=== PATIENT | male | born 1945 | race Caucasian/White ===

== ENCOUNTER 2016-08-27 21:09 | Inpatient (IN) | payer MEDICARE ==
[~2016-08-27 21:09] MED LIST: METFORMIN HCL500 MG PO; PREDNISONE 10MG10 MG PO; SINGULAIR10 MG PO; SPIRIVA18 MCG INH; VENTOLIN (2.5 MG/3 M INH; VENTOLIN HFA IN18 GM INH; VIBRAMYCIN100 M1 PO; ZOCOR20 MG PO
[2016-08-27 22:16] LABS: ALBUMIN 3.5 g/dL (3.4-4.8); BILIRUBIN - TOTAL 0.2 mg/dL (0.1-1.0); CREATININE 0.8 mg/dL (0.7-1.2); GLOBULIN (CALCULATION) 2.8 g/dL (2.2-4.2); TOTAL PROTEIN 6.3 g/dL (6.4-8.3)
[2016-08-27 22:17] LABS: TROPONIN T 0.032 ng/mL
[2016-08-27 22:27] LABS: BASOPHIL 0.3 % (0-2); EOSINOPHIL 1.7 % (0-7); HCT 40.5 % (42.0-52.0); HGB 12.4 g/dl (13.2-18.0); LYMPHOCYTE 9.4 % (15-48); MCH 26.8 pg (25.0-31.0); MCHC 30.6 g/dL (32.0-36.0); MCV 87.5 fL (78.0-100.0); MONOCYTE 6.2 % (0-12); MPV 7.9 fL (6.0-9.5); NEUTROPHIL 82.4 % (41-80); PLT 499 K/uL (150-400); RBC 4.63 M/uL (4.70-6.00); RDW 14.3 % (11.5-14.0); WBC 12.7 K/uL (4.0-10.5)
[2016-08-28 05:46] LABS: BASOPHIL 0.1 % (0-2); EOSINOPHIL 0 % (0-7); HCT 38.5 % (42.0-52.0); HGB 11.8 g/dl (13.2-18.0); LYMPHOCYTE 2.5 % (15-48); MCH 26.6 pg (25.0-31.0); MCHC 30.6 g/dL (32.0-36.0); MCV 86.7 fL (78.0-100.0); MONOCYTE 1.1 % (0-12); MPV 7.7 fL (6.0-9.5); NEUTROPHIL 96.3 % (41-80); PLT 464 K/uL (150-400); RBC 4.44 M/uL (4.70-6.00); RDW 14.2 % (11.5-14.0)
[2016-08-28 05:48] LABS: WBC 9.3 K/uL (4.0-10.5)
[2016-08-28 06:13] LABS: CREATININE 0.7 mg/dL (0.7-1.2); POTASSIUM 4.3 mmol/L (3.5-5.1)
[2016-08-28 06:17] LABS: CKMB 3.94 ng/mL (0.97-4.94); MYOGLOBIN 66 ng/mL (26-65); TROPONIN T < 0.010 ng/mL
[2016-08-28 06:58] LABS: PRO-BNP 540 pg/mL (0-125)
[2016-08-28 12:37] LABS: CKMB 4.36 ng/mL (0.97-4.94); MYOGLOBIN 51 ng/mL (26-65); TROPONIN T < 0.010 ng/mL
[2016-08-28 12:39] LABS: PRO-BNP 550 pg/mL (0-125)
[2016-08-29 04:53] LABS: BASOPHIL 0.1 % (0-2); EOSINOPHIL 0 % (0-7); HCT 37.8 % (42.0-52.0); HGB 11.7 g/dl (13.2-18.0); LYMPHOCYTE 3.2 % (15-48); MCH 26.8 pg (25.0-31.0); MCV 86.7 fL (78.0-100.0); MONOCYTE 2.5 % (0-12); MPV 7.9 fL (6.0-9.5); NEUTROPHIL 94.2 % (41-80); PLT 577 K/uL (150-400); RBC 4.36 M/uL (4.70-6.00); RDW 14.3 % (11.5-14.0); WBC 17.8 K/uL (4.0-10.5)
[2016-08-29 05:13] LABS: CREATININE 0.7 mg/dL (0.7-1.2); POTASSIUM 4.5 mmol/L (3.5-5.1)
--- NOTE | 2016-08-29 07:50 | NUR ---
PATIENT IN BED HARD TO AROUSE, LETHARGIC, AROUSES TO PAINFUL STIMULI, O2 SAT ON 3L O2 94-95%, PATEITN A&0X3 SLOW TO ANSWER QUESTIONS. DR GARCIA CONTACTED AND STAT ABG ORDERED.
--- NOTE | 2016-08-29 08:10 | NUR ---
RESULTS OF ABG TO DR. GARCIA, 02 DECREASED TO 1L NC AND ORDERED TO REPEAT ABG IN 2 HRS, CONTINUE TO MONITOR PATIENT.
--- NOTE | 2016-08-29 09:45 | NUR ---
PATIENT 02 SAT DECREASED TO 83% ON 1L O2;PATIENT CONTINUE TO BE LETHARGIC BUT AROUSES TO PAINFUL STIMULI; MD AWARE AND PATIENT ORDERED TO PLACE ON BIPAP AND TRANSFER TO [facility]
[2016-08-30 06:48] LABS: BASOPHIL 0 % (0-2); EOSINOPHIL 0 % (0-7); HCT 36.4 % (42.0-52.0); HGB 11.3 g/dl (13.2-18.0); LYMPHOCYTE 2.6 % (15-48); MCH 26.4 pg (25.0-31.0); MONOCYTE 1.2 % (0-12); MPV 8.1 fL (6.0-9.5); NEUTROPHIL 96.2 % (41-80); PLT 510 K/uL (150-400); RBC 4.28 M/uL (4.70-6.00); WBC 15.5 K/uL (4.0-10.5)
[2016-08-30 07:10] LABS: ALBUMIN 3.4 g/dL (3.4-4.8); BILIRUBIN - TOTAL 0.2 mg/dL (0.1-1.0); CREATININE 0.7 mg/dL (0.7-1.2); GLOBULIN (CALCULATION) 2.3 g/dL (2.2-4.2); POTASSIUM 4.6 mmol/L (3.5-5.1); TOTAL PROTEIN 5.7 g/dL (6.4-8.3)
[2016-08-31 04:21] LABS: BASOPHIL 0.1 % (0-2); EOSINOPHIL 0 % (0-7); HCT 38.3 % (42.0-52.0); HGB 11.9 g/dl (13.2-18.0); MCH 26.2 pg (25.0-31.0); MCHC 31.1 g/dL (32.0-36.0); MCV 84.2 fL (78.0-100.0); NEUTROPHIL 92.9 % (41-80); PLT 504 K/uL (150-400); RBC 4.55 M/uL (4.70-6.00); RDW 14.1 % (11.5-14.0)
[2016-08-31 04:25] LABS: WBC 11.9 K/uL (4.0-10.5)
[2016-09-01 03:36] LABS: HCT 37.6 % (42.0-52.0); HGB 11.7 g/dl (13.2-18.0); MCH 26.3 pg (25.0-31.0); MCHC 31.1 g/dL (32.0-36.0); MCV 84.5 fL (78.0-100.0); MPV 7.8 fL (6.0-9.5); RBC 4.45 M/uL (4.70-6.00); RDW 13.9 % (11.5-14.0); WBC 13.1 K/uL (4.0-10.5)
[2016-09-02 05:10] LABS: BASOPHIL 0.2 % (0-2); EOSINOPHIL 0 % (0-7); HCT 39.5 % (42.0-52.0); HGB 12.3 g/dl (13.2-18.0); LYMPHOCYTE 4.5 % (15-48); MCH 26.3 pg (25.0-31.0); MCHC 31.1 g/dL (32.0-36.0); MCV 84.4 fL (78.0-100.0); MONOCYTE 3.5 % (0-12); MPV 8.3 fL (6.0-9.5); NEUTROPHIL 91.8 % (41-80); PLT 455 K/uL (150-400); RBC 4.68 M/uL (4.70-6.00)
[2016-09-02 05:19] LABS: CREATININE 0.6 mg/dL (0.7-1.2)
[2016-09-02 05:20] LABS: WBC 13.2 K/uL (4.0-10.5)
[2016-09-02] MEDS ORDERED: DUONEB 2.5-0.5M1 AMP INH (13:44)
[2016-09-02] MEDS ORDERED: LASIX20 MG PO (13:44)
[2016-09-02] MEDS ORDERED: ZYVOX600 MG PO (14:17)
[2016-09-02] MEDS ORDERED: FLORASTOR250 MG PO (14:17)
[2017-03-16] MEDS ORDERED: VENTOLIN HFA IN18 GM INH (12:48)
[2017-03-16] MEDS ORDERED: DILTIAZEM 24HR360 M1 PO (12:48)
[2017-03-16] MEDS ORDERED: PROTONIX 40MG T40 MG PO (12:49)
[2017-03-16] MEDS ORDERED: SYMBICORT 16010.2 GM INH (12:49)
[2017-03-16] MEDS ORDERED: FEOSOL325 MG PO (12:49)
[2017-03-16] MEDS ORDERED: ZOCOR20 MG PO (12:51)
[2017-03-16] MEDS ORDERED: METFORMIN HCL500 MG PO (12:51)
[2017-03-16] MEDS ORDERED: SINGULAIR10 MG PO (12:51)
[2017-03-16] MEDS ORDERED: DUONEB 2.5-0.5M1 AMP INH (12:52)
[2017-03-16] MEDS ORDERED: IBUPROFEN800 MG PO (12:52)
[2017-03-16] MEDS ORDERED: COLACE100 MG PO (12:52)
[2017-03-16] MEDS ORDERED: THEO-24200 MG PO (12:52)
[2017-03-16] MEDS ORDERED: PERCOCET 5/3251 TAB PO (12:53)
[2017-03-16] MEDS ORDERED: LIDOCAINE 5% P1 EACH TOP (12:55)
[2017-03-16] MEDS ORDERED: ACETAMINOPHEN325 MG PO (12:56)
[2017-03-16] MEDS ORDERED: ASPIRIN CHEWABL81 MG PO (12:56)
[2017-03-16] MEDS ORDERED: MUCINEX600 MG PO (12:56)
== END 2016-09-02 16:05 | disposition home health service (06) | DRG 871 ==
LOC: FER 21:09 → FMS 08-28 00:20 → FTCU 08-29 09:13 → FMS 08-31 16:41
PROVIDERS: Emergency Medicine; Internal Medicine; ADMIT Internal Medicine Nephrology
DX: A41.9 Sepsis, unspecified organism (principal); J96.21 Acute and chronic respiratory failure with hypoxia; G93.41 Metabolic encephalopathy; J44.0 Chronic obstructive pulmonary disease with (acute) lower respiratory infection; J44.1 Chronic obstructive pulmonary disease with (acute) exacerbation; J20.9 Acute bronchitis, unspecified; R91.1 Solitary pulmonary nodule; I25.10 Atherosclerotic heart disease of native coronary artery without angina pectoris; E78.5 Hyperlipidemia, unspecified; M10.9 Gout, unspecified; R53.83 Other fatigue; G47.00 Insomnia, unspecified; E11.9 Type 2 diabetes mellitus without complications; B95.62 Methicillin resistant Staphylococcus aureus infection as the cause of diseases classified elsewhere; Z99.81 Dependence on supplemental oxygen; Z95.1 Presence of aortocoronary bypass graft; Z87.891 Personal history of nicotine dependence; Z82.3 Family history of stroke; Z22.322 Carrier or suspected carrier of Methicillin resistant Staphylococcus aureus
CPT/HCPCS: 36415; 36600; 71010; 80048; 80053; 82550; 82553; 82803; 82962; 83874; 83880; 84484; 85025; 86403; 87070; 87077; 87186; 87205; 93005; 94640; 94660; 94664; 94760; 94762; 97110; 97116; 97162; 97166; 97530; 97535; J0456; J1644; J2930

== ENCOUNTER 2016-10-24 11:24 | Inpatient (IN) | payer MEDICARE ==
[~2016-10-24 11:24] MED LIST changes: +DUONEB 2.5-0.5M1 AMP INH; +FLORASTOR250 MG PO; +LASIX20 MG PO; +ZYVOX600 MG PO
[2016-10-28 06:18] LABS: ALBUMIN 3.1 g/dL (3.4-4.8); BILIRUBIN - TOTAL 0.2 mg/dL (0.1-1.0); CREATININE 0.6 mg/dL (0.7-1.2); GLOBULIN (CALCULATION) 2.2 g/dL (2.2-4.2); POTASSIUM 4.9 mmol/L (3.5-5.1); TOTAL PROTEIN 5.3 g/dL (6.4-8.3)
[2017-03-16] MEDS ORDERED: VENTOLIN HFA IN18 GM INH (12:48)
[2017-03-16] MEDS ORDERED: DILTIAZEM 24HR360 M1 PO (12:48)
[2017-03-16] MEDS ORDERED: PROTONIX 40MG T40 MG PO (12:49)
[2017-03-16] MEDS ORDERED: FEOSOL325 MG PO (12:49)
[2017-03-16] MEDS ORDERED: SYMBICORT 16010.2 GM INH (12:49)
[2017-03-16] MEDS ORDERED: METFORMIN HCL500 MG PO (12:51)
[2017-03-16] MEDS ORDERED: SINGULAIR10 MG PO (12:51)
[2017-03-16] MEDS ORDERED: ZOCOR20 MG PO (12:51)
[2017-03-16] MEDS ORDERED: DUONEB 2.5-0.5M1 AMP INH (12:52)
[2017-03-16] MEDS ORDERED: IBUPROFEN800 MG PO (12:52)
[2017-03-16] MEDS ORDERED: COLACE100 MG PO (12:52)
[2017-03-16] MEDS ORDERED: THEO-24200 MG PO (12:52)
[2017-03-16] MEDS ORDERED: PERCOCET 5/3251 TAB PO (12:53)
[2017-03-16] MEDS ORDERED: LIDOCAINE 5% P1 EACH TOP (12:55)
[2017-03-16] MEDS ORDERED: ACETAMINOPHEN325 MG PO (12:56)
[2017-03-16] MEDS ORDERED: ASPIRIN CHEWABL81 MG PO (12:56)
[2017-03-16] MEDS ORDERED: MUCINEX600 MG PO (12:56)
== END 2016-11-04 11:32 | disposition home health service (06) | DRG 871 ==
LOC: FSNU 11:24
PROVIDERS: ADMIT Internal Medicine
DX: A41.9 Sepsis, unspecified organism (principal); J18.9 Pneumonia, unspecified organism; J96.01 Acute respiratory failure with hypoxia; J96.02 Acute respiratory failure with hypercapnia; E11.9 Type 2 diabetes mellitus without complications; I45.10 Unspecified right bundle-branch block; Z99.81 Dependence on supplemental oxygen; I48.0 Paroxysmal atrial fibrillation; J44.0 Chronic obstructive pulmonary disease with (acute) lower respiratory infection; J44.1 Chronic obstructive pulmonary disease with (acute) exacerbation; E87.1 Hypo-osmolality and hyponatremia; K52.9 Noninfective gastroenteritis and colitis, unspecified; E86.0 Dehydration; I25.10 Atherosclerotic heart disease of native coronary artery without angina pectoris; E78.5 Hyperlipidemia, unspecified; I10 Essential (primary) hypertension; M10.9 Gout, unspecified; Z87.81 Personal history of (healed) traumatic fracture; Z87.891 Personal history of nicotine dependence; Z95.1 Presence of aortocoronary bypass graft; Z79.899 Other long term (current) drug therapy
CPT/HCPCS: 36415; 80053; 82962; 97110; 97116; 97163; 97166; 97530; 97530-GP; 97535; J1815

== ENCOUNTER 2016-11-11 15:13 | Inpatient (IN) | payer MEDICARE ==
[2016-11-11 16:29] LABS: BASOPHIL 0.5 % (0-2); EOSINOPHIL 1.3 % (0-7); HCT 23.9 % (42.0-52.0); LYMPHOCYTE 13.9 % (15-48); MCH 24.6 pg (25.0-31.0); MCHC 30.1 g/dL (32.0-36.0); MCV 81.6 fL (78.0-100.0); MONOCYTE 8.9 % (0-12); MPV 8.1 fL (6.0-9.5); NEUTROPHIL 75.4 % (41-80); PLT 427 K/uL (150-400); RBC 2.93 M/uL (4.70-6.00); RDW 18.4 % (11.5-14.0); WBC 10.9 K/uL (4.0-10.5)
[2016-11-11 16:34] LABS: HGB 7.2 g/dl (13.2-18.0)
[2016-11-11 16:39] LABS: ALBUMIN 3.8 g/dL (3.4-4.8); BILIRUBIN - TOTAL 0.3 mg/dL (0.1-1.0); CREATININE 0.9 mg/dL (0.7-1.2); GLOBULIN (CALCULATION) 3.6 g/dL (2.2-4.2); POTASSIUM 4.5 mmol/L (3.5-5.1); TOTAL PROTEIN 7.4 g/dL (6.4-8.3)
[2016-11-11 16:40] LABS: TROPONIN T 0.012 ng/mL
[2016-11-12 05:42] LABS: BASOPHIL 0 % (0-2); EOSINOPHIL 0 % (0-7); HCT 26.3 % (42.0-52.0); HGB 8.6 g/dl (13.2-18.0); LYMPHOCYTE 7.9 % (15-48); MCH 26.1 pg (25.0-31.0); MCHC 32.7 g/dL (32.0-36.0); MCV 79.7 fL (78.0-100.0); MPV 8.1 fL (6.0-9.5); NEUTROPHIL 91.1 % (41-80); PLT 317 K/uL (150-400); RDW 16.6 % (11.5-14.0)
[2016-11-12 05:44] LABS: WBC 4.8 K/uL (4.0-10.5)
[2016-11-12 06:00] LABS: CREATININE 0.8 mg/dL (0.7-1.2); POTASSIUM 4.7 mmol/L (3.5-5.1)
[2016-11-12 06:28] LABS: FOLIC ACID (SERUM) 19.2 ng/mL (5.6-45.8)
[2016-11-12 10:00] LABS: BASOPHIL NO PRINT 0 % (0-2); EOSINOPHIL NO PRINT 0 % (0-7); HCT 26.4 % (42.0-52.0); HGB 8.7 g/dL (13.2-18.0); LYMPHOCYTE NO PRINT 10.4 % (15-48); MCH NO PRINT 26.3 pg (25.0-31.0); MCV NO PRINT 79.8 fL (78.0-100.0); MONOCYTE NO PRINT 2.6 % (0-12); PLT NO PRINT 327 K/uL (150-400); RBC NO PRINT 3.31 M/uL (4.70-6.00); RDW NO PRINT 16.6 % (11.5-14.0); WBC NO PRINT 5.1 K/uL (4.0-10.5)
[2016-11-12 12:39] LABS: IRON 30 ug/dL (44-196); IRON % SATURATION 9 %SAT (20-50); TIBC (TOTAL IRON + UIBC) 343 U/L (228-428); UIBC 313 ug/dL (112-346)
[2016-11-12 22:13] LABS: BASOPHIL NO PRINT 0 % (0-2); EOSINOPHIL NO PRINT 0.1 % (0-7); HCT 32.9 % (42.0-52.0); HGB 11.3 g/dL (13.2-18.0); LYMPHOCYTE NO PRINT 13.8 % (15-48); MCH NO PRINT 27.4 pg (25.0-31.0); MCHC NO PRINT 34.3 g/dL (32.0-36.0); MCV NO PRINT 79.7 fL (78.0-100.0); MONOCYTE NO PRINT 12.8 % (0-12); MPV NO PRINT 7.6 fL (6.0-9.5); NEUTROPHIL NO PRINT 73.3 % (41-80); PLT NO PRINT 351 K/uL (150-400); RBC NO PRINT 4.13 M/uL (4.70-6.00); RDW NO PRINT 16.4 % (11.5-14.0)
[2016-11-13 04:18] LABS: BASOPHIL 0.1 % (0-2); EOSINOPHIL 0.6 % (0-7); HCT 33.5 % (42.0-52.0); LYMPHOCYTE 17.5 % (15-48); MCH 27.4 pg (25.0-31.0); MCHC 33.7 g/dL (32.0-36.0); MCV 81.1 fL (78.0-100.0); MONOCYTE 12.3 % (0-12); MPV 7.6 fL (6.0-9.5); NEUTROPHIL 69.5 % (41-80); PLT 362 K/uL (150-400); RBC 4.13 M/uL (4.70-6.00); RDW 16.5 % (11.5-14.0); WBC 8.4 K/uL (4.0-10.5)
[2016-11-13 04:25] LABS: HGB 11.3 g/dl (13.2-18.0)
[2016-11-13 04:41] LABS: CREATININE 0.8 mg/dL (0.7-1.2); MAGNESIUM 1.95 mg/dL (1.40-2.10); POTASSIUM 4.1 mmol/L (3.5-5.1)
[2016-11-13 10:01] LABS: BASOPHIL NO PRINT 0.1 % (0-2); EOSINOPHIL NO PRINT 1.3 % (0-7); HCT 34.9 % (42.0-52.0); HGB 11.6 g/dL (13.2-18.0); LYMPHOCYTE NO PRINT 13.9 % (15-48); MCH NO PRINT 27.3 pg (25.0-31.0); MCHC NO PRINT 33.2 g/dL (32.0-36.0); MCV NO PRINT 82.1 fL (78.0-100.0); MONOCYTE NO PRINT 12.6 % (0-12); MPV NO PRINT 7.9 fL (6.0-9.5); NEUTROPHIL NO PRINT 72.1 % (41-80); PLT NO PRINT 357 K/uL (150-400); RBC NO PRINT 4.25 M/uL (4.70-6.00); RDW NO PRINT 16.6 % (11.5-14.0); WBC NO PRINT 8.3 K/uL (4.0-10.5)
[2016-11-13 16:35] LABS: BASOPHIL NO PRINT 0.1 % (0-2); EOSINOPHIL NO PRINT 1.1 % (0-7); HCT 37.1 % (42.0-52.0); HGB 12.2 g/dL (13.2-18.0); LYMPHOCYTE NO PRINT 15.4 % (15-48); MCH NO PRINT 27.1 pg (25.0-31.0); MCHC NO PRINT 32.9 g/dL (32.0-36.0); MCV NO PRINT 82.3 fL (78.0-100.0); MONOCYTE NO PRINT 10.3 % (0-12); MPV NO PRINT 7.7 fL (6.0-9.5); NEUTROPHIL NO PRINT 73.1 % (41-80); PLT NO PRINT 409 K/uL (150-400); RBC NO PRINT 4.51 M/uL (4.70-6.00); RDW NO PRINT 16.8 % (11.5-14.0); WBC NO PRINT 9.2 K/uL (4.0-10.5)
[2016-11-13 22:13] LABS: BASOPHIL NO PRINT 0.1 % (0-2); HCT 34.6 % (42.0-52.0); HGB 11.5 g/dL (13.2-18.0); LYMPHOCYTE NO PRINT 19.3 % (15-48); MCH NO PRINT 27.1 pg (25.0-31.0); MCHC NO PRINT 33.2 g/dL (32.0-36.0); MCV NO PRINT 81.4 fL (78.0-100.0); MPV NO PRINT 7.7 fL (6.0-9.5); NEUTROPHIL NO PRINT 66.6 % (41-80); PLT NO PRINT 389 K/uL (150-400); RBC NO PRINT 4.25 M/uL (4.70-6.00); RDW NO PRINT 16.7 % (11.5-14.0); WBC NO PRINT 8.3 K/uL (4.0-10.5)
[2016-11-14 06:16] LABS: HCT 35.4 % (42.0-52.0); HGB 11.3 g/dl (13.2-18.0); MCH 26.8 pg (25.0-31.0); MCHC 31.9 g/dL (32.0-36.0); MCV 83.9 fL (78.0-100.0); MPV 7.7 fL (6.0-9.5); RBC 4.22 M/uL (4.70-6.00); RDW 16.9 % (11.5-14.0); WBC 6.6 K/uL (4.0-10.5)
[2016-11-14 06:39] LABS: CREATININE 0.7 mg/dL (0.7-1.2); MAGNESIUM 1.92 mg/dL (1.40-2.10); POTASSIUM 4.3 mmol/L (3.5-5.1)
[2017-03-16] MEDS ORDERED: VENTOLIN HFA IN18 GM INH (12:48)
[2017-03-16] MEDS ORDERED: DILTIAZEM 24HR360 M1 PO (12:48)
[2017-03-16] MEDS ORDERED: FEOSOL325 MG PO (12:49)
[2017-03-16] MEDS ORDERED: SYMBICORT 16010.2 GM INH (12:49)
[2017-03-16] MEDS ORDERED: PROTONIX 40MG T40 MG PO (12:49)
[2017-03-16] MEDS ORDERED: SINGULAIR10 MG PO (12:51)
[2017-03-16] MEDS ORDERED: ZOCOR20 MG PO (12:51)
[2017-03-16] MEDS ORDERED: METFORMIN HCL500 MG PO (12:51)
[2017-03-16] MEDS ORDERED: THEO-24200 MG PO (12:52)
[2017-03-16] MEDS ORDERED: IBUPROFEN800 MG PO (12:52)
[2017-03-16] MEDS ORDERED: DUONEB 2.5-0.5M1 AMP INH (12:52)
[2017-03-16] MEDS ORDERED: COLACE100 MG PO (12:52)
[2017-03-16] MEDS ORDERED: PERCOCET 5/3251 TAB PO (12:53)
[2017-03-16] MEDS ORDERED: LIDOCAINE 5% P1 EACH TOP (12:55)
[2017-03-16] MEDS ORDERED: ACETAMINOPHEN325 MG PO (12:56)
[2017-03-16] MEDS ORDERED: ASPIRIN CHEWABL81 MG PO (12:56)
[2017-03-16] MEDS ORDERED: MUCINEX600 MG PO (12:56)
== END 2016-11-14 15:56 | disposition home or self-care (01) | DRG 378 ==
LOC: FER 15:13 → FMS 17:25
PROVIDERS: Emergency Medicine; Nurse Practitioner; Surgery; ADMIT Internal Medicine
PROC: 30233N1 Transfusion of Nonautologous Red Blood Cells into Peripheral Vein, Percutaneous Approach (ICD-10-PCS; 2016-11-11)
PROC: 0DJ08ZZ Inspection of Upper Intestinal Tract, Via Natural or Artificial Opening Endoscopic (ICD-10-PCS; 2016-11-13)
PROC: 0DJD8ZZ Inspection of Lower Intestinal Tract, Via Natural or Artificial Opening Endoscopic (ICD-10-PCS; principal; 2016-11-14 11:00)
DX: K92.2 Gastrointestinal hemorrhage, unspecified (principal); J44.1 Chronic obstructive pulmonary disease with (acute) exacerbation; J96.11 Chronic respiratory failure with hypoxia; Z99.81 Dependence on supplemental oxygen; I48.0 Paroxysmal atrial fibrillation; E11.9 Type 2 diabetes mellitus without complications; I10 Essential (primary) hypertension; D64.9 Anemia, unspecified; D62 Acute posthemorrhagic anemia; Z79.01 Long term (current) use of anticoagulants; I25.10 Atherosclerotic heart disease of native coronary artery without angina pectoris; E78.5 Hyperlipidemia, unspecified; M10.9 Gout, unspecified; Z79.82 Long term (current) use of aspirin; Z87.891 Personal history of nicotine dependence; E78.00 Pure hypercholesterolemia, unspecified; Z95.1 Presence of aortocoronary bypass graft; Z82.3 Family history of stroke
CPT/HCPCS: 36415; 36430; 36600; 71010; 80048; 80053; 82607; 82728; 82746; 82803; 82962; 83540; 83550; 83735; 83880; 84484; 85014; 85018; 85025; 85044; 86850; 86900; 86901; 86922; 93005; 94010; 94640; 94760; 94762; C9113; J1940; J2704; J2916; J2930; J3420; P9016

== ENCOUNTER 2016-11-23 15:57 | Emergency (ER) | payer MEDICARE ==
[2016-11-23 16:56] LABS: BASOPHIL 0.4 % (0-2); EOSINOPHIL 0.6 % (0-7); HCT 23.6 % (42.0-52.0); HGB 7.5 g/dl (13.2-18.0); LYMPHOCYTE 7.1 % (15-48); MCH 27.4 pg (25.0-31.0); MCHC 31.8 g/dL (32.0-36.0); MCV 86.1 fL (78.0-100.0); MONOCYTE 8.2 % (0-12); MPV 7.9 fL (6.0-9.5); NEUTROPHIL 83.7 % (41-80); PLT 622 K/uL (150-400); RBC 2.74 M/uL (4.70-6.00); RDW 17.5 % (11.5-14.0)
[2016-11-23 16:57] LABS: WBC 17.1 K/uL (4.0-10.5)
[2016-11-23 17:04] LABS: ALBUMIN 3.2 g/dL (3.4-4.8); BILIRUBIN - TOTAL 0.3 mg/dL (0.1-1.0); CREATININE 1.2 mg/dL (0.7-1.2); GLOBULIN (CALCULATION) 2.9 g/dL (2.2-4.2); POTASSIUM 3.4 mmol/L (3.5-5.1); TOTAL PROTEIN 6.1 g/dL (6.4-8.3); TROPONIN T 0.021 ng/mL
[2016-11-23 17:52] LABS: LACTIC ACID 1.2 mmol/L (0.5-2.2)
[2016-11-23 18:50] LABS: BILIRUBIN NEGATIVE (NEGATIVE); BLOOD NEGATIVE Ery/uL (NEGATIVE); CLARITY CLEAR (CLEAR); COLOR YELLOW (YELLOW); GLUCOSE (U) NORMAL (NORMAL); KETONE (U) NEGATIVE (NEGATIVE); LEUKOCYTES NEGATIVE Leu/uL (NEGATIVE); NITRITE NEGATIVE (NEGATIVE); PROTEIN 1+ mg/dL (NEGATIVE); pH 6.5 (5.0-9.0)
[2016-11-23 18:55] LABS: SQUAMOUS EPITHELIAL CELLS RARE
[2017-03-16] MEDS ORDERED: DILTIAZEM 24HR360 M1 PO (12:48)
[2017-03-16] MEDS ORDERED: VENTOLIN HFA IN18 GM INH (12:48)
[2017-03-16] MEDS ORDERED: SYMBICORT 16010.2 GM INH (12:49)
[2017-03-16] MEDS ORDERED: PROTONIX 40MG T40 MG PO (12:49)
[2017-03-16] MEDS ORDERED: FEOSOL325 MG PO (12:49)
[2017-03-16] MEDS ORDERED: ZOCOR20 MG PO (12:51)
[2017-03-16] MEDS ORDERED: SINGULAIR10 MG PO (12:51)
[2017-03-16] MEDS ORDERED: METFORMIN HCL500 MG PO (12:51)
[2017-03-16] MEDS ORDERED: COLACE100 MG PO (12:52)
[2017-03-16] MEDS ORDERED: THEO-24200 MG PO (12:52)
[2017-03-16] MEDS ORDERED: IBUPROFEN800 MG PO (12:52)
[2017-03-16] MEDS ORDERED: DUONEB 2.5-0.5M1 AMP INH (12:52)
[2017-03-16] MEDS ORDERED: PERCOCET 5/3251 TAB PO (12:53)
[2017-03-16] MEDS ORDERED: LIDOCAINE 5% P1 EACH TOP (12:55)
[2017-03-16] MEDS ORDERED: ASPIRIN CHEWABL81 MG PO (12:56)
[2017-03-16] MEDS ORDERED: MUCINEX600 MG PO (12:56)
[2017-03-16] MEDS ORDERED: ACETAMINOPHEN325 MG PO (12:56)
== END 2016-11-23 23:15 | disposition other institution (70) ==
LOC: FER 15:57
PROVIDERS: Emergency Medicine
PROC: 30233N1 Transfusion of Nonautologous Red Blood Cells into Peripheral Vein, Percutaneous Approach (ICD-10-PCS; principal; 2016-11-23)
DX: D64.9 Anemia, unspecified (principal); E11.9 Type 2 diabetes mellitus without complications; J44.9 Chronic obstructive pulmonary disease, unspecified; F17.210 Nicotine dependence, cigarettes, uncomplicated; I48.91 Unspecified atrial fibrillation; I45.10 Unspecified right bundle-branch block; N28.1 Cyst of kidney, acquired; K59.00 Constipation, unspecified; R42 Dizziness and giddiness; E78.5 Hyperlipidemia, unspecified; M10.9 Gout, unspecified
CPT/HCPCS: 36415; 36430; 71020; 80053; 81001; 83605; 83880; 84484; 85025; 85379; 86850; 86900; 86901; 86922; 87040; 93005; 96374; P9016

== ENCOUNTER 2016-12-16 14:13 | Emergency (ER) | payer MEDICARE ==
[2016-12-16 14:51] LABS: BASOPHIL 0.5 % (0-2); EOSINOPHIL 1.8 % (0-7); HCT 21.6 % (42.0-52.0); LYMPHOCYTE 8.9 % (15-48); MCHC 28.2 g/dL (32.0-36.0); MONOCYTE 9.6 % (0-12); MPV 7.6 fL (6.0-9.5); NEUTROPHIL 79.2 % (41-80); PLT 483 K/uL (150-400); RBC 2.54 M/uL (4.70-6.00); RDW 17.5 % (11.5-14.0); WBC 7.6 K/uL (4.0-10.5)
[2016-12-16 14:55] LABS: HGB 6.1 g/dl (13.2-18.0); INR 1.1 (0.9-1.2); PROTHROMBIN TIME 13.8 SECONDS (11.7-14.0)
[2016-12-16 15:18] LABS: ALBUMIN 3.6 g/dL (3.4-4.8); BILIRUBIN - TOTAL 0.2 mg/dL (0.1-1.0); CREATININE 0.8 mg/dL (0.7-1.2); GLOBULIN (CALCULATION) 2.7 g/dL (2.2-4.2); POTASSIUM 4.1 mmol/L (3.5-5.1); TOTAL PROTEIN 6.3 g/dL (6.4-8.3)
[2016-12-16 15:23] LABS: TROPONIN T < 0.010 ng/mL
[2016-12-16 15:29] LABS: PRO-BNP 216 pg/mL (0-125)
[2017-03-16] MEDS ORDERED: VENTOLIN HFA IN18 GM INH (12:48)
[2017-03-16] MEDS ORDERED: DILTIAZEM 24HR360 M1 PO (12:48)
[2017-03-16] MEDS ORDERED: SYMBICORT 16010.2 GM INH (12:49)
[2017-03-16] MEDS ORDERED: PROTONIX 40MG T40 MG PO (12:49)
[2017-03-16] MEDS ORDERED: FEOSOL325 MG PO (12:49)
[2017-03-16] MEDS ORDERED: SINGULAIR10 MG PO (12:51)
[2017-03-16] MEDS ORDERED: ZOCOR20 MG PO (12:51)
[2017-03-16] MEDS ORDERED: METFORMIN HCL500 MG PO (12:51)
[2017-03-16] MEDS ORDERED: THEO-24200 MG PO (12:52)
[2017-03-16] MEDS ORDERED: DUONEB 2.5-0.5M1 AMP INH (12:52)
[2017-03-16] MEDS ORDERED: COLACE100 MG PO (12:52)
[2017-03-16] MEDS ORDERED: IBUPROFEN800 MG PO (12:52)
[2017-03-16] MEDS ORDERED: PERCOCET 5/3251 TAB PO (12:53)
[2017-03-16] MEDS ORDERED: LIDOCAINE 5% P1 EACH TOP (12:55)
[2017-03-16] MEDS ORDERED: ASPIRIN CHEWABL81 MG PO (12:56)
[2017-03-16] MEDS ORDERED: ACETAMINOPHEN325 MG PO (12:56)
[2017-03-16] MEDS ORDERED: MUCINEX600 MG PO (12:56)
== END 2016-12-16 21:49 | disposition other institution (70) ==
LOC: FER 14:13
PROVIDERS: Emergency Medicine
PROC: 30233N1 Transfusion of Nonautologous Red Blood Cells into Peripheral Vein, Percutaneous Approach (ICD-10-PCS; principal; 2016-12-16)
DX: J44.1 Chronic obstructive pulmonary disease with (acute) exacerbation (principal); K92.2 Gastrointestinal hemorrhage, unspecified; D64.9 Anemia, unspecified; E11.65 Type 2 diabetes mellitus with hyperglycemia; I25.2 Old myocardial infarction; Z95.1 Presence of aortocoronary bypass graft; Z87.891 Personal history of nicotine dependence
CPT/HCPCS: 36415; 36430; 71010; 80053; 83880; 84484; 85025; 85610; 86850; 86900; 86901; 86922; 93005; 94640; 96374; J2930; P9016

== ENCOUNTER 2017-02-18 19:59 | Inpatient (IN) | payer MEDICARE ==
[~2017-02-18] VITALS: Ht 162.6 cm; Wt 55.4 kg
[2017-02-18 20:36] LABS: BASOPHIL 0.1 % (0-2); EOSINOPHIL 0.4 % (0-7); HCT 32.6 % (42.0-52.0); HGB 9.8 g/dl (13.2-18.0); LYMPHOCYTE 2.5 % (15-48); MCH 23.1 pg (25.0-31.0); MCHC 30.1 g/dL (32.0-36.0); MCV 76.7 fL (78.0-100.0); MONOCYTE 5.2 % (0-12); MPV 7.6 fL (6.0-9.5); NEUTROPHIL 91.8 % (41-80); PLT 357 K/uL (150-400); RBC 4.25 M/uL (4.70-6.00); RDW 16.7 % (11.5-14.0)
[2017-02-18 20:42] LABS: WBC 18.7 K/uL (4.0-10.5)
[2017-02-18 20:43] LABS: INR 1.16 (0.9-1.2); PROTHROMBIN TIME 13.9 SECONDS (11.4-13.2)
[2017-02-18 20:44] LABS: PTT 42.4 SECONDS (24.3-32.1)
[2017-02-18 20:45] LABS: D-DIMER 1.53 ug/mLFEU (0.00-0.41)
[2017-02-18 20:52] LABS: CKMB 1.83 ng/mL (0.97-4.94); MYOGLOBIN 26 ng/mL (26-65); TROPONIN T < 0.010 ng/mL
[2017-02-18 20:53] LABS: ALBUMIN 3.6 g/dL (3.4-4.8); BILIRUBIN - TOTAL 0.2 mg/dL (0.1-1.0); CREATININE 0.6 mg/dL (0.7-1.2); GLOBULIN (CALCULATION) 2.9 g/dL (2.2-4.2); MAGNESIUM 1.32 mg/dL (1.40-2.10); POTASSIUM 3.8 mmol/L (3.5-5.1); TOTAL PROTEIN 6.5 g/dL (6.4-8.3)
[2017-02-18 21:23] LABS: BILIRUBIN NEGATIVE (NEGATIVE); BLOOD TRACE-LYSED Ery/uL (NEGATIVE); CLARITY CLEAR (CLEAR); COLOR YELLOW (YELLOW); GLUCOSE (U) 1+ mg/dL (NORMAL); KETONE (U) NEGATIVE (NEGATIVE); LEUKOCYTES NEGATIVE Leu/uL (NEGATIVE); NITRITE NEGATIVE (NEGATIVE); PROTEIN 1+ mg/dL (NEGATIVE); UROBILINOGEN 0.2 mg/dL (0.2-1.0)
[2017-02-18 21:35] LABS: URINARY WBC RARE
[2017-02-18 22:49] LABS: PRO-BNP 408 pg/mL (0-125)
[2017-02-19 00:10] LABS: LACTIC ACID 1.7 mmol/L (0.5-2.2)
[2017-02-19 03:59] LABS: BASOPHIL 0.1 % (0-2); EOSINOPHIL 0 % (0-7); HCT 27.8 % (42.0-52.0); HGB 8.2 g/dl (13.2-18.0); LYMPHOCYTE 0.6 % (15-48); MCH 23.1 pg (25.0-31.0); MCHC 29.5 g/dL (32.0-36.0); MCV 78.3 fL (78.0-100.0); MONOCYTE 0.9 % (0-12); MPV 7.8 fL (6.0-9.5); PLT 270 K/uL (150-400); RBC 3.55 M/uL (4.70-6.00); RDW 16.7 % (11.5-14.0)
[2017-02-19 04:18] LABS: CREATININE 0.5 mg/dL (0.7-1.2); POTASSIUM 4.2 mmol/L (3.5-5.1)
[2017-02-19 04:19] LABS: CKMB 1.46 ng/mL (0.97-4.94); TROPONIN T < 0.010 ng/mL
[2017-02-19 04:27] LABS: NEUTROPHIL 98.4 % (41-80)
[2017-02-19 04:28] LABS: TSH (THYROID STIM HORMONE) 0.681 uIU/mL (0.270-4.200)
[2017-02-19 04:41] LABS: FOLIC ACID (SERUM) 15.4 ng/mL (5.6-45.8)
[2017-02-19 09:47] LABS: BILIRUBIN NEGATIVE (NEGATIVE); BLOOD TRACE-INTACT Ery/uL (NEGATIVE); CLARITY CLEAR (CLEAR); COLOR YELLOW (YELLOW); GLUCOSE (U) 1+ mg/dL (NORMAL); KETONE (U) NEGATIVE (NEGATIVE); LEUKOCYTES NEGATIVE Leu/uL (NEGATIVE); NITRITE NEGATIVE (NEGATIVE); PROTEIN TRACE (LOW) mg/dL (NEGATIVE); SPECIFIC GRAVITY 1.015 (1.001-1.030); UROBILINOGEN 0.2 mg/dL (0.2-1.0)
[2017-02-19 10:17] LABS: CKMB 1.91 ng/mL (0.97-4.94); TROPONIN T < 0.010 ng/mL
[2017-02-20 10:04] LABS: BASOPHIL 0 % (0-2); EOSINOPHIL 0 % (0-7); HCT 34.2 % (42.0-52.0); HGB 10.4 g/dl (13.2-18.0); LYMPHOCYTE 4.4 % (15-48); MCHC 30.4 g/dL (32.0-36.0); MONOCYTE 6.4 % (0-12); MPV 7.8 fL (6.0-9.5); NEUTROPHIL 89.2 % (41-80); PLT 253 K/uL (150-400); RBC 4.33 M/uL (4.70-6.00); RDW 16.6 % (11.5-14.0); WBC 10.4 K/uL (4.0-10.5)
[2017-02-20 11:16] LABS: CREATININE 0.6 mg/dL (0.7-1.2); POTASSIUM 3.7 mmol/L (3.5-5.1)
[2017-02-21 05:32] LABS: BASOPHIL 0 % (0-2); HCT 32.7 % (42.0-52.0); HGB 9.9 g/dl (13.2-18.0); LYMPHOCYTE 12.1 % (15-48); MCHC 30.3 g/dL (32.0-36.0); MCV 79.4 fL (78.0-100.0); MONOCYTE 7.9 % (0-12); MPV 7.7 fL (6.0-9.5); PLT 297 K/uL (150-400); RBC 4.12 M/uL (4.70-6.00); WBC 7.2 K/uL (4.0-10.5)
[2017-02-21 05:50] LABS: CREATININE 0.6 mg/dL (0.7-1.2); POTASSIUM 3.5 mmol/L (3.5-5.1)
[2017-02-22 06:38] LABS: HCT 35.2 % (42.0-52.0); HGB 10.6 g/dl (13.2-18.0); MCH 23.9 pg (25.0-31.0); MCHC 30.1 g/dL (32.0-36.0); MCV 79.5 fL (78.0-100.0); MPV 7.7 fL (6.0-9.5); RBC 4.43 M/uL (4.70-6.00); RDW 17.5 % (11.5-14.0); WBC 5.9 K/uL (4.0-10.5)
[2017-02-23 06:31] LABS: HCT 36.5 % (42.0-52.0); HGB 10.9 g/dl (13.2-18.0); MCH 23.5 pg (25.0-31.0); MCHC 29.9 g/dL (32.0-36.0); MCV 78.8 fL (78.0-100.0); MPV 7.8 fL (6.0-9.5); RBC 4.63 M/uL (4.70-6.00); RDW 18.1 % (11.5-14.0); WBC 5.9 K/uL (4.0-10.5)
[2017-02-24 22:09] LABS: CREATININE 0.7 mg/dL (0.7-1.2); POTASSIUM 5.1 mmol/L (3.5-5.1)
[2017-02-25 13:53] LABS: CREATININE 0.5 mg/dL (0.7-1.2); POTASSIUM 4.9 mmol/L (3.5-5.1)
== END 2017-02-25 15:17 | DRG 871 ==
LOC: FER 19:59 → FICU 23:50 → FMS 02-21 14:47
PROVIDERS: Emergency Medicine Emergency Medical Services; Internal Medicine; Nurse Practitioner; ADMIT Internal Medicine
PROC: 30233N1 Transfusion of Nonautologous Red Blood Cells into Peripheral Vein, Percutaneous Approach (ICD-10-PCS; principal; 2017-02-19)
DX: A41.9 Sepsis, unspecified organism (principal); J96.22 Acute and chronic respiratory failure with hypercapnia; J96.21 Acute and chronic respiratory failure with hypoxia; R65.21 Severe sepsis with septic shock; J15.1 Pneumonia due to Pseudomonas; J14 Pneumonia due to Hemophilus influenzae; E11.65 Type 2 diabetes mellitus with hyperglycemia; K92.2 Gastrointestinal hemorrhage, unspecified; J44.0 Chronic obstructive pulmonary disease with (acute) lower respiratory infection; I48.0 Paroxysmal atrial fibrillation; J44.1 Chronic obstructive pulmonary disease with (acute) exacerbation; N39.0 Urinary tract infection, site not specified; I45.4 Nonspecific intraventricular block; Z99.81 Dependence on supplemental oxygen; E78.5 Hyperlipidemia, unspecified; I10 Essential (primary) hypertension; M10.9 Gout, unspecified; Z95.1 Presence of aortocoronary bypass graft; Z79.899 Other long term (current) drug therapy; R53.1 Weakness; M71.21 Synovial cyst of popliteal space [Baker], right knee; M17.11 Unilateral primary osteoarthritis, right knee; D63.8 Anemia in other chronic diseases classified elsewhere; K21.9 Gastro-esophageal reflux disease without esophagitis; R91.1 Solitary pulmonary nodule; K52.9 Noninfective gastroenteritis and colitis, unspecified; B96.20 Unspecified Escherichia coli [E. coli] as the cause of diseases classified elsewhere; D35.01 Benign neoplasm of right adrenal gland; K57.30 Diverticulosis of large intestine without perforation or abscess without bleeding
CPT/HCPCS: 36415; 36430; 36600; 71010; 71250; 71275; 73560; 80048; 80053; 81001; 81003; 82009; 82550; 82553; 82607; 82728; 82746; 82803; 82962; 83036; 83540; 83605; 83735; 83874; 83880; 84145; 84443; 84484; 85025; 85379; 85610; 85651; 85730; 86850; 86900; 86901; 86922; 87040; 87070; 87076; 87077; 87088; 87186; 87205; 93005; 93971; 94010; 94640; 94660; 94760; 96374; 97110; 97116; 97163; 97166; 97530; 97530-GP; 97535; C9113; J1815; J1885; J1940; J1956; J2185; J2270; J2405; J2543; J2930; P9016; Q9967